=== PATIENT | female | born 1990 | race Two or more races ===

== ENCOUNTER 2025-03-03 13:27 | Emergency (ER) | payer SELFPAY ==
[2025-03-03 13:28] VITALS: BP 119/74; PULSE 79; RESP 18; TEMP 36.4; O2SAT 100; BMI 32.3
--- NOTE | 2025-03-03 13:38 | PD.EDPSYCH ---
ED Psych RME/HPI General Chief Complaint: Psychiatric Symptoms Stated Complaint: MENTAL EVAL Time Seen by Provider: 03/03/25 13:29 Arrival date/time: 03/03/25 13:27 RME / HPI RME / HPI Narrative: 34 year old female presents to the ED [facility] for mental health evaluation. According to the medics, a [facility] officer found the patient walking along [place] in [place]. Upon making contact, the officer observed that she appeared to be in a psychiatric crisis and contacted EMS. On scene, the patient was noted to be talking to herself and had no specific complaints. She reportedly stated that she had been dropped off in the [place] by an unknown individual and provided an address in [place], which is believed to be her residence. In the ED, the patient is alert but mumbling to herself. She follows commands but is unable to provide any additional history. Past medical history is unknown. Related Data Allergies Allergy/AdvReac Type Severity Reaction Status Date / Time No Known Allergies Allergy Verified 03/03/25 15:57 Review of Systems Review of Systems ROS Unobtainable: unobtainable due to mental status Past Medical History Social History SMOKING STATUS: Current every day smoker ED Exam Narrative Physical exam: Constitutional: Awake, no acute distress, pants and feet are covered in dust, patient arrived barefoot, patient is mumbling at times to herself and gritting teeth. HEENT: NC, AT, EOMI Neck: Supple CV: RRR, no m/r/g Lungs: CTAB, no w/r/r, no respiratory distress. Abd: Soft, NT, NT, no HSM noted to palpation Extremities: No deformities, no edema noted Neuro: Alert, unable to determine orientation, patient not answering questions, follows some commands, no acute neuro deficit noted. Skin: Warm, dry, intact Course Course Course Narrative: 1740h: Patient is medically cleared pending urine drug screen. 1800h: Patient has been medically cleared for mental health evaluation. Signed out to Dr. Hills pending mental health evaluation and final disposition. Quality Measures none Orders Category Date Time Status Consult Rehab Technician NOW Care 03/03/25 13:38 Active Acetaminophen Stat Lab 03/03/25 14:06 Completed Alcohol, Blood Medical Stat Lab 03/03/25 14:06 Completed Basic Metabolic Panel Stat Lab 03/03/25 14:06 Completed CBC Stat Lab 03/03/25 14:06 Completed Drug Screen,Urine Stat Lab 03/03/25 16:43 Completed HCG Qualitative,Urine Stat Lab 03/03/25 16:40 Completed Vital Signs Vital signs: Vital Signs Temperature 97.6 F 03/03/25 13:28 Pulse Rate 79 03/03/25 13:28 Respiratory Rate 18 03/03/25 13:28 Blood Pressure 119/74 03/03/25 13:28 Pulse Oximetry (%) 100 03/03/25 13:28 Oxygen Delivery Method Room Air 03/03/25 13:28 Pulse ox is 100% on room air which is adequate. Psych MDM Narrative MDM Narrative:: ILuz, am scribing for and in the presence of Dr. Thakur. Patient data External records reviewed:: EMS form Clinical information provided by:: EMS Social determinants that could affect healthcare access:: mental health (???) Patient has the following chronic illnesses:: No known medical hx reported How is presenting disease/condition affected by chronic disease/condition?: no chronic disease Evaluation data The following diagnostics were reviewed and interpreted by me:: lab results and radiology exam(s) Lab and/or radiology exams considered but not ordered:: None Interpretation Summary: Medically cleared at this time. Medications / Prescriptions Medications or Prescriptions considered but not ordered:: None Medication administrations:: None Consultations Consultation(s) initiated? (list below): No Diagnosis Psych Differential Diagnosis: chronic schizophrenia, bipolar disorder, depression, drug-induced psychotic disorder and acute anxiety Most likely diagnosis given after review of the tests above:: CBC and CMP are unremarkable. UDS negative. Admission Indicated Admission indicated?: not indicated Explain why admission is indicated or not indicated:: Signed out pending mental health evaluation. Admission Request Was there a request for admission?: No Disposition Plan Disposition Plan: other (specify) (Signed out to Dr. Hills pending ) Discharge Plan Prescriptions/Referrals Referrals: No Primary/Family,Physician [Primary Care Provider] - In 1 week Problem List Clinical Impression: Acute psychosis Patient/Caregiver Discharge Instructions Print Language: Icelandic
[2025-03-03 13:39] VITALS: PULSE 73; O2SAT 98
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
[2025-03-03 14:16] LABS: Basophils # (Auto) 0.0 Thou/mm3 (0.0-0.2); Basophils % (Auto) 0 % (0-2.5); Eosinophils # (Auto) 0.1 Thou/mm3 (0.0-0.5); Eosinophils % (Auto) 1 % (0-10); Hematocrit 40.9 % (36.0-46.0); Hemoglobin 13.7 g/dL (12.0-16.0); Immature Granulocytes Auto 0.03 Thou/mm3 (0.00-0.00); Lymphocytes # (Auto) 3.0 Thou/mm3 (1.0-4.8); Lymphocytes % (Auto) 30 % (10-50); Mean Corpuscular HGB Conc 33.5 g/dl (31.0-37.0); Mean Corpuscular Hemoglobin 29.8 pg (25.0-35.0); Mean Corpuscular Volume 89 fL (80-100); Monocytes # (Auto) 0.5 Thou/mm3 (0.0-0.8); Monocytes % (Auto) 5 % (0-12); Neutrophils # (Auto) 6.2 Thou/mm3 (1.8-7.7); Neutrophils % (Auto) 63 % (37-80); Nucleated Red Blood Cell # 0.00 Thou/mm3 (0.00-0.00); Nucleated Red Blood Cell % 0 /100 WBC (0); Platelet Count 254 Thou/mm3 (140-440); RDW Standard Deviation 41.1 fL (36.4-46.3); Red Blood Count 4.60 Miln/mm3 (4.00-5.20); White Blood Count 9.9 Thou/mm3 (3.6-11.0)
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
[2025-03-03 14:38] LABS: Acetaminophen < 2.0 mcg/mL (10.0-20.0); Alcohol, Blood Medical < 10.0 mg/dL (0-10.0); Anion Gap 12 (7-16); BUN/Creatinine Ratio 19 Ratio (12-20); Blood Urea Nitrogen 15 mg/dL (9-23); Calcium 10.1 mg/dL (8.3-10.6); Carbon Dioxide 21.2 mMol/L (20.0-31.0); Chloride 106 mMol/L (98-107); Creatinine (Component) 0.8 mg/dL (0.6-1.3); Estimated Creatinine Clearance 113.5 mL/min (>60); Glucose 89 mg/dL (74-106); Osmolality,Calculated 277 (275-295); Potassium 3.6 mMol/L (3.4-5.1); Sodium 139 mMol/L (136-145); eGFR > 60 See Note
[2025-03-03 15:36] VITALS: BP 124/83; PULSE 98; RESP 18; TEMP 36.7; O2SAT 97
[2025-03-03 17:05] LABS: HCG Qualitative,Urine Negative
[2025-03-03 17:42] LABS: Amphetamine/Methamp Scrn,U Negative (Negative); Barbiturate Screen,Urine Negative (Negative); Benzodiazepines Screen,Urine Negative (Negative); Benzoylecgonine Screen, Ur Negative (Negative); Fentanyl Screen,Urine Negative (Negative); Opiate Screen,Urine Negative (Negative); THC Screen,Urine Negative (Negative)
[2025-03-03 18:01] VITALS: BP 122/80; PULSE 87; RESP 17; TEMP 36.9; O2SAT 96
--- NOTE | 2025-03-03 18:42 | PD.EDADDENDU ---
Emergency Room Addendum <Sherly Muñoz - Last Filed: 03/03/25 18:43> Addendum Narrative: 1800: Care assumed from Dr. Thakur, the previous shift emergency physician. Past medical, surgical, social and family history reviewed. Vitals and home medications reviewed. Results and treatment plan discussed. I will assume the care of the patient at this time and will follow the patient, pending psychiatric evaluation. Please refer to the emergency department record for history and examination from initial visit. <Kumar Hills DO - Last Filed: 03/04/25 05:16> Addendum Narrative: 1800: Care assumed from Dr. Thakur, the previous shift emergency physician. Past medical, surgical, social and family history reviewed. Vitals and home medications reviewed. Results and treatment plan discussed. I will assume the care of the patient at this time and will follow the patient, pending psychiatric evaluation. Please refer to the emergency department record for history and examination from initial visit. 5:15 AM: Patient did well throughout the night without incident or need for medication.
--- NOTE | 2025-03-03 20:42 | PC.NURSE ---
Nurse introduced self, pt stated she is here for a cough, Snack provided
[2025-03-03 21:57] VITALS: BP 105/67; PULSE 71; RESP 16; TEMP 36.7; O2SAT 97
--- NOTE | 2025-03-04 02:48 | PC.NURSE ---
WE HAD DOWN TIME FROM [id number].
[2025-03-04 03:13] VITALS: BP 101/58; PULSE 84; RESP 18; TEMP 36.3; O2SAT 98
[2025-03-04 03:23] VITALS: BP 128/84; PULSE 74; RESP 19; TEMP 36.8; O2SAT 100
[2025-03-04 07:55] VITALS: BP 114/62; PULSE 70; RESP 18; TEMP 37.2; O2SAT 98
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
--- NOTE | 2025-03-04 09:41 | PC.NURSE ---
Shavon from [facility] called and stated they can not accept pt. due to pt.'s acuity.
--- NOTE | 2025-03-04 09:46 | PC.NURSE ---
Nito from [facility] called and requested information, information given, Nito states they will accept pt., Dr. Mahmood accepting pt. going to unit F.
--- NOTE | 2025-03-04 10:02 | PC.CC ---
Patient was accepted to [facility], unit F, by Dr. Mahmood. Ntio with [facility] provided accepting information. Patient was provided with accepting information and was receptive. ARCHIVES DIRECTOR, provided accepting information to medical team and discharge plan to [facility]. ARCHIVES DIRECTOR to arrange transportation.
--- NOTE | 2025-03-04 10:44 | PD.EDADDENDU ---
Emergency Room Addendum Addendum Narrative: 0600: Care assumed from Dr. Hills, the previous shift emergency physician. Past medical, surgical, social and family history reviewed. Vitals and home medications reviewed. I will assume the care of the patient at this time, pending mental health evaluation and final disposition. Please refer to the emergency department record for history and examination from initial visit.?The following addendum documentation note is intended to reflect any pending information, findings, or radiology results not included in the patient?s initial chart. 0815h: Patient has been evaluated by our social and political studies professor and has placed the patient on a 5150 hold. At this time pending LPS facility placement. Patient has been accepted for transfer at [facility]. EMS p/u 12:10h.
== END 2025-03-04 11:11 ==
PROVIDERS: Emergency Provider Family Medicine
DX: Z04.6 Encounter for general psychiatric examination, requested by authority (principal); F23 Brief psychotic disorder; Z75.1 Person awaiting admission to adequate facility elsewhere
CPT/HCPCS: 36415; 80048; 80307; 80320; 80329; 81025; 85025; 96127; 99283; G0480